=== PATIENT | male | born 1970 | race Caucasian/White ===

== ENCOUNTER → 2021-11-28 14:40 | Outpatient (BNVA) | payer BC, SELFPAY | PROVIDERS: PCP Internal Medicine; Visit Provider Nurse Practitioner Family ==

== ENCOUNTER 2022-10-08 12:50 | Outpatient (REF) | payer OTHER, SELFPAY ==
--- NOTE | 2022-10-08 12:59 | EEG_ITS ---
This is a 16-channel EEG with an EKG lead. The patient is reported awake during the tracing. Background EEG rhythm is low amplitude fast alpha and beta with no obvious asymmetry or paroxysmal tendency. Photic stimulation does not produce any significant driving. Hyperventilation is not performed. Cardiac lead does not reveal any significant abnormality. No sharp wave spikes or paroxysmal tendencies noted. IMPRESSION: Unremarkable EEG. MD ADALBERTO Martinez/SRI / [id number]
== END 2022-10-08 12:51 | disposition home or self-care (01) ==
LOC: HO.NEURO 12:50
PROVIDERS: PCP Internal Medicine; Visit Provider Nurse Practitioner Family
DX: F09 Unspecified mental disorder due to known physiological condition (principal)
CPT/HCPCS: 95816

== ENCOUNTER → 2023-01-23 14:14 | Outpatient (BNVA) | payer OTHER, SELFPAY | PROVIDERS: PCP Internal Medicine; Visit Provider Nurse Practitioner Family | DX: Z13.89 Encounter for screening for other disorder (principal) ==

== ENCOUNTER 2025-09-22 08:48 | Outpatient (AMB) | payer BC, SELFPAY ==
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
[2025-09-22 08:55] VITALS: BP 120/84; PULSE 81; O2SAT 99; BMI 28.0
--- OUTSIDE RECORDS SUMMARY | 2025-09-22 09:13 | XMS_ITS | Clinical Summary ---
Author Organization [facility] Address [address] [place] [address] Care Team Providers Care Screen Printing Paster Name Role Phone Unavailable Primary Care Provider Unavailabl e Social History Tobacco Use Types Packs/Day Years Used Date Smoking Tobacco: Never Assessed Sex and Gender Information Value Date Recorded Sex Assigned at Not on file Gender Identity Not on file Sexual Orientation Not on file Plan of Treatment Not on file
== END 2025-09-22 10:05 | disposition home or self-care (01) ==
PROVIDERS: PCP Internal Medicine; Visit Provider Nurse Practitioner Family
DX: F43.10 Post-traumatic stress disorder, unspecified (principal); R41.89 Other symptoms and signs involving cognitive functions and awareness; F07.81 Postconcussional syndrome; G43.009 Migraine without aura, not intractable, without status migrainosus
CPT/HCPCS: 99214